=== PATIENT | male | born 1975 | race Hispanic/Latino ===

== ENCOUNTER 2018-01-26 05:39 | Emergency (ER) | payer SELFPAY ==
[~2018-01-26] VITALS: Ht 172.7 cm; Wt 93.0 kg
[2018-01-26] MEDS ORDERED: KETOROLAC TROMETHAMINE 30 MG/ML VIAL IV STA (05:52)
[2018-01-26] MEDS ORDERED: ONDANSETRON HCL INJ 2 MG/ML VIAL ONE (05:54)
[2018-01-26] MEDS ORDERED: KETOROLAC TROMETHAMINE 30 MG/ML VIAL ONE (05:54)
[2018-01-26] MEDS: ONDANSETRON HCL INJ 2 MG/ML VIAL IV STA (05:58)
[2018-01-26 06:08] LABS: BASOPHILS # (AUTO) 0.1 (0.0-0.1); BASOPHILS % 0.4 % (0.0-1.0); EOSINOPHILS # (AUTO) 0.2 (0.0-0.4); EOSINOPHILS % 1.4 % (0.0-6.0); HEMOGLOBIN 14.3 g/dL (14.0-18.0); LYMPHOCYTES # (AUTO) 7.1 (1.0-3.2); LYMPHOCYTES % 60.5 % (18.0-39.1); MEAN CORPUSCULAR HEMOGLOBIN 31.2 pg (28-32); MEAN CORPUSCULAR HGB CONC 34.9 g/dL (31-35); MEAN CORPUSCULAR VOLUME 89.3 fL (81-99); MONOCYTES # (AUTO) 0.8 (0.2-0.8); MONOCYTES % 6.9 % (4.4-11.3); NEUTROPHILS # (AUTO) 3.6 (2.1-6.9); NEUTROPHILS % 30.5 % (38.7-80.0); PLATELET COUNT 291 x10e3/uL (140-360); RED BLOOD COUNT 4.59 x10e6/uL (4.3-5.7); RED CELL DISTRIBUTION WIDTH 12.1 % (11.7-14.4)
[2018-01-26 06:26] LABS: CLARITY,URINE HAZY (CLEAR); COLOR,URINE YELLOW (YELLOW); LEUKOCYTE ESTERASE ,URINE TRACE (NEGATIVE); NITRITE,URINE NEGATIVE (NEGATIVE)
[2018-01-26 06:27] LABS: BACTERIA,URINE RARE /HPF; BILIRUBIN,URINE NEGATIVE (NEGATIVE); EPITHELIAL CELLS,URINE RARE /LPF; KETONES,URINE NEGATIVE (NEGATIVE); PROTEIN,URINE DIPSTICK NEGATIVE (NEGATIVE); RBC,URINE >50 /HPF (0-5); URINE UROBILINOGEN 0.2 mg/dL (0.2 - 1); WBC,URINE (MAN) 0-5 /HPF (0-5)
[2018-01-26 06:37] LABS: ALANINE AMINOTRANSFERASE 69 IU/L (0-55); ALBUMIN 4.3 g/dL (3.5-5.0); ALBUMIN/GLOBULIN RATIO 1.7 (0.8-2.0); ALKALINE PHOSPHATASE 91 IU/L (40-150); AMYLASE 50 U/L (25-125); ANION GAP 16.1 mmol/L (8-16); BLOOD UREA NITROGEN 8 mg/dL (7-26); BUN/CREATININE RATIO 10 (6-25); CALCIUM 9.1 mg/dL (8.4-10.2); CARBON DIOXIDE 20 mmol/L (22-29); CHLORIDE 108 mmol/L (98-107); CREATININE, SERUM 0.83 mg/dL (0.72-1.25); EST GLOMERULAR FILTRATION RATE > 60 ML/MIN (60-); GLUCOSE 119 mg/dL (74-118); LIPASE 51 U/L (8-78); POTASSIUM 3.1 mmol/L (3.5-5.1); SODIUM 141 mmol/L (136-145)
--- NOTE | 2018-01-26 06:52 | Diagnostic Imaging Report ---
EXAM: CT ABDOMEN/PELVIS WO DATE: 01/26/2018 5:52 AM INDICATION: ^right flank pain, rlq pain ^[id number] ^[id number] ^Y COMPARISON: None TECHNIQUE: The abdomen and pelvis were scanned using a multidetector helical scanner. Coronal and sagittal reformations were obtained. CT low dose techniques were utilized, as applicable. IV Contrast: 0 ml Isovue 300/370 FINDINGS: Lack of IV contrast decreases sensitivity in evaluating abdominal and pelvic organs. LOWER THORAX: No consolidations LIVER/BILIARY: Hepatic steatosis with pericholecystic sparing . GALLBLADDER: Unremarkable SPLEEN: Unremarkable PANCREAS: Unremarkable ADRENALS: No nodules KIDNEYS: Nonobstructing 9 mm left inferior renal calculus. No left hydronephrosis. No right renal calculi. 2 to 3 mm right proximal ureteral calculus without significant hydronephrosis. GI TRACT: No wall thickening or evidence of obstruction. Normal appendix. VESSELS: Unremarkable PERITONEUM/RETROPERITONEUM: No free air or fluid LYMPH NODES: No lymphadenopathy REPRODUCTIVE ORGANS/BLADDER: Unremarkable SOFT TISSUES: Tiny fat-containing umbilical hernia. BONES: No suspicious bone lesions. IMPRESSION: 1. 2 to 3 mm right proximal ureteral calculus without significant hydronephrosis. 2. Nonobstructing 9 mm left inferior renal calculus. No obstructive left uropathy. Signed by: Dr Keely Parker MD on 01/26/2018 6:48 AM
[2018-01-26 07:04] VITALS: BP 117/69
[2018-01-26 08:52] LABS: EOSINOPHILS % (MANUAL) 1 % (0-7); LYMPHOCYTES % (MANUAL) 60 % (19-48); MONOCYTES % (MANUAL) 11 % (3.4-9.0); NEUTROPHILS % (MANUAL) 28 % (40-74); PLATELET ESTIMATE ADEQUATE; PLATELET MORPHOLOGY COMMENT NORMAL; RBC MORPHOLOGY COMMENT NORMAL
== END 2018-01-26 07:21 | disposition home or self-care (01) ==
LOC: ER 05:39
DX: R10.31 Right lower quadrant pain (principal); R11.0 Nausea; N20.1 Calculus of ureter
CPT/HCPCS: 36415; 74176; 80053; 81001; 82150; 83690; 85025; 99284; J1885; J2405

== ENCOUNTER 2020-06-29 16:18 | Observation (INO) | payer BC, OTHER ==
[~2020-06-29] VITALS: Ht 172.7 cm; Wt 93.0 kg
[2020-06-29] MEDS ORDERED: KETOROLAC TROMETHAMINE 30 MG/ML VIAL IV STA (16:34)
[2020-06-29] MEDS ORDERED: ONDANSETRON HCL INJ 2MG/ML 2ML 2 MG/ML VIAL IV STA (16:34)
[2020-06-29 16:45] LABS: BASOPHILS % 0.3 % (0.0-1.0); EOSINOPHILS # (AUTO) 0.1 (0.0-0.4); HEMATOCRIT 40.9 % (38.2-49.6); HEMOGLOBIN 14.2 g/dL (14.0-18.0); LYMPHOCYTES # (AUTO) 2.5 (1.0-3.2); LYMPHOCYTES % 17.2 % (18.0-39.1); MEAN CORPUSCULAR HGB CONC 34.7 g/dL (31-35); MEAN CORPUSCULAR VOLUME 89.3 fL (81-99); MONOCYTES # (AUTO) 1.6 (0.2-0.8); MONOCYTES % 11.2 % (4.4-11.3); NEUTROPHILS # (AUTO) 10.2 (2.1-6.9); NEUTROPHILS % 69.8 % (38.7-80.0); PLATELET COUNT 287 x10e3/uL (140-360); RED BLOOD COUNT 4.58 x10e6/uL (4.3-5.7); RED CELL DISTRIBUTION WIDTH 12.3 % (11.7-14.4)
[2020-06-29 16:54] LABS: CLARITY,URINE SL CLOUDY (CLEAR); COLOR,URINE YELLOW (YELLOW); LEUKOCYTE ESTERASE ,URINE NEGATIVE (NEGATIVE); NITRITE,URINE NEGATIVE (NEGATIVE)
[2020-06-29 16:55] LABS: KETONES,URINE TRACE (NEGATIVE); PROTEIN,URINE DIPSTICK NEGATIVE (NEGATIVE); URINE UROBILINOGEN 0.2 mg/dL (0.2 - 1)
[2020-06-29 17:02] LABS: AMORPHOUS SEDIMENT,URINE MODERATE (FEW); BACTERIA,URINE FEW /HPF
[2020-06-29 17:07] LABS: ALBUMIN 4.4 g/dL (3.5-5.0); ALBUMIN/GLOBULIN RATIO 1.5 (0.8-2.0); ANION GAP 14.7 mmol/L (8-16); CALCIUM 8.6 mg/dL (8.4-10.2); CREATININE, SERUM 1.47 mg/dL (0.72-1.25); POTASSIUM 3.7 mmol/L (3.5-5.1)
[2020-06-29] MEDS ORDERED: GABAPENTIN300 MG PO (18:39)
[2020-06-29] MEDS ORDERED: CELECOXIB200 MG PO (18:39)
[2020-06-29] MEDS: SODIUM CHLORIDE 0.9% 1000ML 1,000 ML IV SCH (18:40)
[2020-06-29 18:46] LABS: CREATINE KINASE MB 1.1 ng/mL (0-5.0)
[2020-06-29 20:05] VITALS: BP 140/88
[2020-06-29 20:19] VITALS: BP 112/53
[2020-06-29] MEDS: MORPHINE SULFATE INJ 4 MG/ML INJ 1ML IV PRN ×2 (20:47→21:55)
[2020-06-29] MEDS: ONDANSETRON HCL INJ 2MG/ML 2ML 2 MG/ML VIAL IV PRN (20:48)
[2020-06-29 20:58] VITALS: BP 140/88
[2020-06-30] MEDS: ONDANSETRON HCL INJ 2MG/ML 2ML 2 MG/ML VIAL IV PRN ×3 (01:54→09:37)
[2020-06-30] MEDS: MORPHINE SULFATE INJ 4 MG/ML INJ 1ML IV PRN ×3 (01:54→09:37)
[2020-06-30 02:21] LABS: CREATINE KINASE 84 IU/L (30-200)
[2020-06-30] MEDS: SODIUM CHLORIDE 0.9% 1000ML 1,000 ML IV SCH ×2 (03:00→10:55)
[2020-06-30 05:26] VITALS: BP 110/66
[2020-06-30 06:10] LABS: BASOPHILS % 0.3 % (0.0-1.0); EOSINOPHILS # (AUTO) 0.4 (0.0-0.4); EOSINOPHILS % 3.1 % (0.0-6.0); HEMATOCRIT 36.1 % (38.2-49.6); HEMOGLOBIN 12.3 g/dL (14.0-18.0); LYMPHOCYTES % 33.2 % (18.0-39.1); MEAN CORPUSCULAR HEMOGLOBIN 30.5 pg (28-32); MEAN CORPUSCULAR HGB CONC 34.1 g/dL (31-35); MEAN CORPUSCULAR VOLUME 89.6 fL (81-99); MONOCYTES # (AUTO) 1.5 (0.2-0.8); MONOCYTES % 12.5 % (4.4-11.3); NEUTROPHILS # (AUTO) 6.1 (2.1-6.9); NEUTROPHILS % 50.6 % (38.7-80.0); PLATELET COUNT 254 x10e3/uL (140-360); RED BLOOD COUNT 4.03 x10e6/uL (4.3-5.7)
[2020-06-30] MEDS ORDERED: DOCUSATE SODIUM 100 MG CAP PO PRN (06:30)
[2020-06-30] MEDS ORDERED: ACETAMINOPHEN 325 MG TAB PO PRN (06:30)
[2020-06-30] MEDS ORDERED: ZOLPIDEM TARTRATE 5 MG TAB PO PRN (06:30)
[2020-06-30 06:34] LABS: ALANINE AMINOTRANSFERASE 23 IU/L (0-55); ALBUMIN 3.7 g/dL (3.5-5.0); ALBUMIN/GLOBULIN RATIO 1.5 (0.8-2.0); ALKALINE PHOSPHATASE 95 IU/L (40-150); ANION GAP 11.9 mmol/L (8-16); BLOOD UREA NITROGEN 15 mg/dL (7-26); BUN/CREATININE RATIO 13 (6-25); CARBON DIOXIDE 24 mmol/L (22-29); CHLORIDE 105 mmol/L (98-107); CREATININE, SERUM 1.18 mg/dL (0.72-1.25); EST GLOMERULAR FILTRATION RATE > 60 ML/MIN (60-); GLUCOSE 88 mg/dL (74-118); POTASSIUM 3.9 mmol/L (3.5-5.1); SODIUM 137 mmol/L (136-145)
[2020-06-30 07:23] LABS: CHOL/HDL RATIO 4.6 (3.9-4.7)
[2020-06-30] MEDS ORDERED: FAMOTIDINE 20 MG TAB PO SCH (07:30)
[2020-06-30 08:40] VITALS: BP 125/81
[2020-06-30 09:25] VITALS: BP 125/81
[2020-06-30] MEDS ORDERED: IOPAMIDOL 300MG/ML 50ML INFUS..BTL IV ONE (11:27)
[2020-06-30] MEDS ORDERED: BACTRIM DS TAB1 EACH PO (11:49)
[2020-06-30] MEDS ORDERED: ULTRAM 50MG50 MG PO (11:52)
[2020-06-30 13:10] VITALS: BP 128/70
[2020-06-30] MEDS ORDERED: PROPOFOL IV EMULSION 10 MG/ML 20 ML VIAL ONE (13:12)
[2020-06-30] MEDS ORDERED: ONDANSETRON HCL INJ 2MG/ML 2ML 2 MG/ML VIAL ONE (13:12)
[2020-06-30] MEDS ORDERED: DEXAMETHASONE SOD PHOS INJ 4 MG/ML VIAL ONE (13:12)
[2020-06-30] MEDS ORDERED: SEVOFLURANE INHAL SOLN 250 ML PEN BTL ONE (13:12)
[2020-06-30] MEDS ORDERED: LIDOCAINE HCL 2% LOCAL INJ 5 ML SDV VIAL INJ ONE (13:12)
[2020-06-30] MEDS ORDERED: FENTANYL CITRATE/PF 100MCG/2 ML INJ ONE (13:41)
[2020-06-30] MEDS ORDERED: MIDAZOLAM HCL 2 MG/2 ML VIAL ONE (13:41)
[2020-06-30 14:04] LABS: CREATINE KINASE MB 0.5 ng/mL (0-5.0)
[2020-06-30 16:48] VITALS: BP 128/74
[2020-06-30] MEDS ORDERED: GABAPENTIN 300 MG CAP PO SCH (21:00)
== END 2020-06-30 16:15 | disposition home or self-care (01) ==
LOC: ER 16:32 → INTOOBSV 17:58 → ERHOLD 17:58 → MED/SURG3 19:44
PROVIDERS: ADMIT Internal Medicine; ATTEND Internal Medicine
DX: N13.0 Hydronephrosis with ureteropelvic junction obstruction (principal); N20.1 Calculus of ureter; N17.9 Acute kidney failure, unspecified; E66.9 Obesity, unspecified; Z68.31 Body mass index [BMI] 31.0-31.9, adult; F17.210 Nicotine dependence, cigarettes, uncomplicated; Z20.822 Contact with and (suspected) exposure to COVID-19
CPT/HCPCS: 36415; 74176; 74420; 80053; 80061; 81001; 82550; 82553; 83036; 84484; 85025; 96361; 99284; C1758; C2625; G0378; J1100; J1885; J2001; J2250; J2270; J2405; J3010; J7030; U0002

== ENCOUNTER 2020-12-12 18:46 | Emergency (ER) | payer OTHER ==
[~2020-12-12] VITALS: Ht 172.7 cm; Wt 93.0 kg
[~2020-12-12 18:46] MED LIST: BACTRIM DS TAB1 EACH PO; CELECOXIB200 MG PO; GABAPENTIN300 MG PO; ULTRAM 50MG50 MG PO
[2020-12-12] MEDS ORDERED: ONDANSETRON HCL INJ 2MG/ML 2ML 2 MG/ML VIAL IV STA (19:58)
[2020-12-12] MEDS ORDERED: SODIUM CHLORIDE 0.9% 1000ML 1,000 ML IV STA (19:58)
[2020-12-12] MEDS ORDERED: MORPHINE SULFATE 5 MG/ML VIAL IV ONE (20:00)
[2020-12-12] MEDS ORDERED: MORPHINE SULFATE INJ 2 MG/ML SYR ONE (20:24)
[2020-12-12 20:29] LABS: BASOPHILS # (AUTO) 0.1 (0.0-0.1); BASOPHILS % 0.4 % (0.0-1.0); EOSINOPHILS # (AUTO) 0.3 (0.0-0.4); EOSINOPHILS % 2.1 % (0.0-6.0); HEMATOCRIT 43.6 % (38.2-49.6); HEMOGLOBIN 14.3 g/dL (14.0-18.0); LYMPHOCYTES % 29.2 % (18.0-39.1); MEAN CORPUSCULAR HGB CONC 32.8 g/dL (31-35); MEAN CORPUSCULAR VOLUME 94.4 fL (81-99); MONOCYTES # (AUTO) 1.6 (0.2-0.8); MONOCYTES % 11.6 % (4.4-11.3); NEUTROPHILS # (AUTO) 7.7 (2.1-6.9); NEUTROPHILS % 56.1 % (38.7-80.0); PLATELET COUNT 324 x10e3/uL (140-360); RED BLOOD COUNT 4.62 x10e6/uL (4.3-5.7); RED CELL DISTRIBUTION WIDTH 13.2 % (11.7-14.4)
[2020-12-12 20:37] LABS: CLARITY,URINE CLOUDY (CLEAR); COLOR,URINE BROWN (YELLOW)
[2020-12-12 20:38] LABS: KETONES,URINE NEGATIVE (NEGATIVE); LEUKOCYTE ESTERASE ,URINE SMALL (NEGATIVE); NITRITE,URINE NEGATIVE (NEGATIVE); PROTEIN,URINE DIPSTICK 2+ (NEGATIVE); URINE UROBILINOGEN 1 mg/dL (0.2 - 1)
[2020-12-12 20:43] LABS: ALANINE AMINOTRANSFERASE 33 IU/L (0-55); ALBUMIN 4.1 g/dL (3.5-5.0); ALBUMIN/GLOBULIN RATIO 1.1 (0.8-2.0); ALKALINE PHOSPHATASE 85 IU/L (40-150); ANION GAP 13.5 mmol/L (8-16); BACTERIA,URINE MODERATE /HPF; BLOOD UREA NITROGEN 21 mg/dL (7-26); BUN/CREATININE RATIO 27 (6-25); CALCIUM 9.7 mg/dL (8.4-10.2); CARBON DIOXIDE 26 mmol/L (22-29); CHLORIDE 106 mmol/L (98-107); CREATINE KINASE 34 IU/L (30-200); CREATININE, SERUM 0.78 mg/dL (0.72-1.25); EST GLOMERULAR FILTRATION RATE 108 ML/MIN (60-); GLUCOSE 89 mg/dL (74-118); POTASSIUM 4.5 mmol/L (3.5-5.1); RBC,URINE >50 /HPF (0-5); SODIUM 141 mmol/L (136-145)
[2020-12-12] MEDS ORDERED: CEFTRIAXONE 1 GM in SODIUM CHLORIDE 0.9% 50ML 50 ML IV ONE (21:00)
[2020-12-12] MEDS ORDERED: CEFUROXIME250 MG PO (23:19)
[2020-12-12] MEDS ORDERED: ULTRAM50 MG PO (23:19)
[2020-12-12 23:38] VITALS: BP 148/94
== END 2020-12-13 00:06 | disposition home or self-care (01) ==
LOC: ER 19:58
DX: R31.9 Hematuria, unspecified (principal); M54.5 Low back pain; N20.2 Calculus of kidney with calculus of ureter; R91.8 Other nonspecific abnormal finding of lung field; K76.0 Fatty (change of) liver, not elsewhere classified
CPT/HCPCS: 36415; 74176; 80053; 81001; 82550; 82553; 84484; 85025; 99284; J0696; J2270; J2405; J7030

== ENCOUNTER → 2021-01-20 | Day surgery (SDC) | payer OTHER ==
[2021-01-18 11:25] LABS: BASOPHILS # (AUTO) 0.1 (0.0-0.1); BASOPHILS % 0.6 % (0.0-1.0); EOSINOPHILS # (AUTO) 0.2 (0.0-0.4); EOSINOPHILS % 1.8 % (0.0-6.0); HEMATOCRIT 41.7 % (38.2-49.6); HEMOGLOBIN 13.8 g/dL (14.0-18.0); LYMPHOCYTES # (AUTO) 3.5 (1.0-3.2); LYMPHOCYTES % 40.4 % (18.0-39.1); MEAN CORPUSCULAR HEMOGLOBIN 30.3 pg (28-32); MEAN CORPUSCULAR HGB CONC 33.1 g/dL (31-35); MEAN CORPUSCULAR VOLUME 91.6 fL (81-99); MONOCYTES # (AUTO) 0.8 (0.2-0.8); MONOCYTES % 8.6 % (4.4-11.3); NEUTROPHILS # (AUTO) 4.2 (2.1-6.9); NEUTROPHILS % 48.3 % (38.7-80.0); PLATELET COUNT 281 x10e3/uL (140-360); RED BLOOD COUNT 4.55 x10e6/uL (4.3-5.7); RED CELL DISTRIBUTION WIDTH 12.4 % (11.7-14.4)
[2021-01-18 11:51] LABS: ANION GAP 13.1 mmol/L (8-16); CALCIUM 9.2 mg/dL (8.4-10.2); CREATININE, SERUM 0.71 mg/dL (0.72-1.25); POTASSIUM 4.1 mmol/L (3.5-5.1)
[~2021-01-20] MED LIST changes: +ACETAMINOPHEN-1 EAC3; +BELLADONNA/OPIUM 30 MG SUPP RC ONE; +CEFEPIME HCL 1 GM VIAL ONE; +CEFUROXIME250 MG PO; +DICLOFENAC POTA50 MG PO; +GENTAMICIN 80MG/NS 100 ML 200 ML IV ONE; +HYDROMORPHONE 1MG/1ML INJ ONE; +IOPAMIDOL 300MG/ML 50ML INFUS..BTL IV ONE; +TIZANIDINE HCL4 MG PO; +ULTRAM50 MG PO
[2021-01-20 13:05] VITALS: BP 167/109
== END | disposition home or self-care (01) ==
LOC: OR 09:07
PROVIDERS: ATTEND Urology
DX: N20.0 Calculus of kidney (principal); N21.0 Calculus in bladder; N13.30 Unspecified hydronephrosis; N39.0 Urinary tract infection, site not specified; Z46.6 Encounter for fitting and adjustment of urinary device; N40.0 Benign prostatic hyperplasia without lower urinary tract symptoms; R80.9 Proteinuria, unspecified; M54.50 Low back pain, unspecified; R00.1 Bradycardia, unspecified; Z72.0 Tobacco use; Z01.810 Encounter for preprocedural cardiovascular examination; Z01.812 Encounter for preprocedural laboratory examination; Z01.818 Encounter for other preprocedural examination; Z20.822 Contact with and (suspected) exposure to COVID-19; Z68.30 Body mass index [BMI] 30.0-30.9, adult
CPT/HCPCS: 36415; 74018; 80048; 83970; 84550; 85025; 88300; 93005; C1758; C2617; J0692; J1170; J1580; U0002

== ENCOUNTER → 2021-02-07 | Outpatient (CLI) | payer OTHER ==
[~2021-02-07] MED LIST changes: -BELLADONNA/OPIUM 30 MG SUPP RC ONE; -CEFEPIME HCL 1 GM VIAL ONE; -GENTAMICIN 80MG/NS 100 ML 200 ML IV ONE; -HYDROMORPHONE 1MG/1ML INJ ONE; -IOPAMIDOL 300MG/ML 50ML INFUS..BTL IV ONE
== END ==
LOC: CT 15:37
PROVIDERS: ATTEND Urology
DX: N20.0 Calculus of kidney (principal)
CPT/HCPCS: 74176

== ENCOUNTER 2022-03-08 11:26 | Observation (INO) | payer OTHER ==
[~2022-03-08] VITALS: Ht 172.7 cm; Wt 93.0 kg
[2022-03-08] MEDS ORDERED: SODIUM CHLORIDE 0.9% 1000ML 1,000 ML IV STA (11:48)
[2022-03-08] MEDS ORDERED: KETOROLAC TROMETHAMINE 30 MG/ML VIAL IV STA (11:48)
[2022-03-08 12:02] LABS: BASOPHILS # (AUTO) 0.2 (0.0-0.1); BASOPHILS % 1.2 % (0.0-1.0); EOSINOPHILS % 0.2 % (0.0-6.0); HEMATOCRIT 45.2 % (38.2-49.6); HEMOGLOBIN 15.4 g/dL (14.0-18.0); LYMPHOCYTES # (AUTO) 2.7 (1.0-3.2); LYMPHOCYTES % 18.8 % (18.0-39.1); MEAN CORPUSCULAR HEMOGLOBIN 30.9 pg (28-32); MEAN CORPUSCULAR HGB CONC 34.1 g/dL (31-35); MEAN CORPUSCULAR VOLUME 90.6 fL (81-99); MONOCYTES # (AUTO) 0.9 (0.2-0.8); MONOCYTES % 6.1 % (4.4-11.3); NEUTROPHILS # (AUTO) 10.3 (2.1-6.9); NEUTROPHILS % 73.2 % (38.7-80.0); PLATELET COUNT 335 x10e3/uL (140-360); RED BLOOD COUNT 4.99 x10e6/uL (4.3-5.7); RED CELL DISTRIBUTION WIDTH 12.2 % (11.7-14.4)
[2022-03-08 12:23] LABS: ALBUMIN 4.5 g/dL (3.5-5.0); ALBUMIN/GLOBULIN RATIO 1.6 (0.8-2.0); ANION GAP 13.7 mmol/L (8-16); CALCIUM 9.1 mg/dL (8.4-10.2); CREATININE, SERUM 0.8 mg/dL (0.72-1.25); POTASSIUM 3.7 mmol/L (3.5-5.1)
[2022-03-08] MEDS ORDERED: CEFTRIAXONE 1 GM VIAL IM ONE (13:30)
[2022-03-08] MEDS ORDERED: ONDANSETRON HCL INJ 2MG/ML 2ML 2 MG/ML VIAL IV PRN (13:30)
[2022-03-08 14:27] LABS: CLARITY,URINE SL CLOUDY (CLEAR); COLOR,URINE YELLOW (YELLOW); KETONES,URINE NEGATIVE (NEGATIVE); LEUKOCYTE ESTERASE ,URINE NEGATIVE (NEGATIVE); NITRITE,URINE NEGATIVE (NEGATIVE); PROTEIN,URINE DIPSTICK NEGATIVE (NEGATIVE); URINE UROBILINOGEN 0.2 mg/dL (0.2 - 1)
[2022-03-08 14:39] LABS: WBC,URINE (MAN) 0-5 /HPF (0-5)
[2022-03-08 14:40] LABS: AMORPHOUS SEDIMENT,URINE MODERATE (FEW); BACTERIA,URINE MODERATE /HPF; MUCUS,URINE FEW (RARE)
[2022-03-08] MEDS: SODIUM CHLORIDE 0.9% 1000ML 1,000 ML IV SCH (16:20)
[2022-03-08] MEDS: Morphine 4mg INJECTION 4 MG/ML INJ IV PRN ×2 (16:20→20:56)
[2022-03-08 17:05] VITALS: BP 137/74
[2022-03-08 17:36] VITALS: BP 137/74
[2022-03-08 18:09] VITALS: BP 137/74
[2022-03-08 20:00] VITALS: BP 126/73
[2022-03-08 20:48] VITALS: BP 137/74
[2022-03-08] MEDS ORDERED: MELATONIN 5 MG TABLET PO PRN (21:30)
[2022-03-09] VITALS: BP 108/67
[2022-03-09] MEDS: SODIUM CHLORIDE 0.9% 1000ML 1,000 ML IV SCH ×3 (05:30→16:09)
[2022-03-09 06:14] LABS: BASOPHILS # (AUTO) 0.2 (0.0-0.1); BASOPHILS % 1.4 % (0.0-1.0); EOSINOPHILS # (AUTO) 0.2 (0.0-0.4); EOSINOPHILS % 1.6 % (0.0-6.0); HEMATOCRIT 37.9 % (38.2-49.6); HEMOGLOBIN 13.1 g/dL (14.0-18.0); MEAN CORPUSCULAR HEMOGLOBIN 31.6 pg (28-32); MEAN CORPUSCULAR HGB CONC 34.6 g/dL (31-35); MEAN CORPUSCULAR VOLUME 91.3 fL (81-99); MONOCYTES % 8.5 % (4.4-11.3); NEUTROPHILS % 44.1 % (38.7-80.0); PLATELET COUNT 300 x10e3/uL (140-360); RED BLOOD COUNT 4.15 x10e6/uL (4.3-5.7); RED CELL DISTRIBUTION WIDTH 12.4 % (11.7-14.4)
[2022-03-09 06:42] LABS: ANION GAP 10.8 mmol/L (8-16); CALCIUM 8.6 mg/dL (8.4-10.2); CREATININE, SERUM 0.74 mg/dL (0.72-1.25); POTASSIUM 3.8 mmol/L (3.5-5.1)
[2022-03-09 06:44] VITALS: BP 109/70
[2022-03-09] MEDS: Morphine 4mg INJECTION 4 MG/ML INJ IV PRN ×3 (07:17→16:07)
[2022-03-09 09:14] VITALS: BP 127/82
[2022-03-09 09:46] VITALS: BP 127/82
[2022-03-09] MEDS: DOCUSATE SODIUM 100 MG CAP PO SCH ×2 (10:00→16:07)
[2022-03-09] MEDS ORDERED: ONDANSETRON HCL 4 MG ORAL DISINTEGRATING TAB PO PRN (12:00)
[2022-03-09] MEDS ORDERED: FENTANYL CITRATE/PF 100MCG/2 ML INJ ONE (13:11)
[2022-03-09] MEDS ORDERED: MIDAZOLAM HCL 2 MG/2 ML VIAL ONE (13:11)
[2022-03-09] MEDS ORDERED: ONDANSETRON HCL INJ 2MG/ML 2ML 2 MG/ML VIAL ONE (13:34)
[2022-03-09] MEDS ORDERED: LIDOCAINE HCL 2% LOCAL INJ 5 ML SDV VIAL INJ ONE (13:34)
[2022-03-09] MEDS ORDERED: POVIDONE IODINE 0.05% 0.05 % ML PO ONE (13:34)
[2022-03-09] MEDS ORDERED: PROPOFOL IV EMULSION 10 MG/ML 20 ML VIAL ONE (13:34)
[2022-03-09] MEDS ORDERED: SEVOFLURANE INHAL SOLN 250 ML PEN BTL ONE (13:34)
[2022-03-09] MEDS ORDERED: PHENAZOPYRIDINE HCL 100 MG TAB PO PRN (13:45)
[2022-03-09] MEDS ORDERED: ACETAMINOPHEN/CODEINE 300MG - 30MG TAB PO PRN (13:45)
[2022-03-09 13:50] VITALS: BP 145/94
[2022-03-09 16:40] VITALS: BP 144/87
[2022-03-09] MEDS ORDERED: VESICARE5 MG PO (18:01)
[2022-03-09] MEDS ORDERED: ceftin PO (18:02)
[2022-03-09] MEDS ORDERED: tylenol #3 PO (18:02)
[2022-03-10] MEDS ORDERED: SOLIFENACIN SUCCINATE 5 MG TAB PO SCH (09:00)
== END 2022-03-09 18:13 | disposition home or self-care (01) ==
LOC: ER 11:35 → ERHOLD 13:27 → MED/SURG3 16:53
PROVIDERS: ADMIT Internal Medicine; ATTEND Internal Medicine
DX: N13.2 Hydronephrosis with renal and ureteral calculous obstruction (principal); R31.29 Other microscopic hematuria; Z20.822 Contact with and (suspected) exposure to COVID-19
CPT/HCPCS: 36415; 74176; 80048; 80053; 81001; 83690; 85025; 87086; 88300; 94799; 99284; C1758; C1769; C2617; G0378; J0696; J1885; J2001; J2250; J2270; J2405; J3010; J7030; Q0162

== ENCOUNTER → 2024-02-19 | Outpatient (REF) | payer OTHER ==
[~2024-02-19] MED LIST changes: +VESICARE5 MG PO; +ceftin PO; +tylenol #3 PO
== END ==
LOC: NM 09:46
PROVIDERS: ATTEND Physician Assistant
DX: M54.50 Low back pain, unspecified (principal); M43.26 Fusion of spine, lumbar region
CPT/HCPCS: 78306; A9503

== ENCOUNTER 2024-07-07 12:45 | Emergency (ER) | payer OTHER ==
[~2024-07-07] VITALS: Ht 172.7 cm; Wt 89.8 kg
[2024-07-07] MEDS ORDERED: ASPIRIN 81 MG CHEW TAB ONE (12:50)
[2024-07-07] MEDS: ASPIRIN 81 MG CHEW TAB PO ONE (12:50)
[2024-07-07 12:53] VITALS: TEMP 98.3
[2024-07-07 12:59] LABS: BASOPHILS # (AUTO) 0.1 (0.0-0.1); BASOPHILS % 0.7 % (0.0-1.0); EOSINOPHILS # (AUTO) 0.2 (0.0-0.4); EOSINOPHILS % 2.6 % (0.0-6.0); HEMATOCRIT 41.1 % (38.2-49.6); HEMOGLOBIN 14.6 g/dL (14.0-18.0); LYMPHOCYTES # (AUTO) 3.6 (1.0-3.2); LYMPHOCYTES % 41.3 % (18.0-39.1); MEAN CORPUSCULAR HEMOGLOBIN 31.4 pg (28-32); MEAN CORPUSCULAR HGB CONC 35.5 g/dL (31-35); MEAN CORPUSCULAR VOLUME 88.4 fL (81-99); MONOCYTES # (AUTO) 0.8 (0.2-0.8); MONOCYTES % 9.2 % (4.4-11.3); NEUTROPHILS % 45.9 % (38.7-80.0); PLATELET COUNT 307 x10e3/uL (140-360); RED BLOOD COUNT 4.65 x10e6/uL (4.3-5.7); RED CELL DISTRIBUTION WIDTH 12.1 % (11.7-14.4)
[2024-07-07 13:29] LABS: ALBUMIN 4.5 g/dL (3.5-5.0); ALBUMIN/GLOBULIN RATIO 1.6 (0.8-2.0); ANION GAP 13.7 mmol/L (8-16); BILIRUBIN,TOTAL 0.6 mg/dL (0.2-1.2); CREATININE, SERUM 0.8 mg/dL (0.72-1.25); POTASSIUM 3.7 mmol/L (3.5-5.1); TOTAL PROTEIN 7.4 g/dL (6.5-8.1)
[2024-07-07 13:35] LABS: TROPONIN I 0.008 ng/mL (0-0.300)
[2024-07-07] MEDS: MAGNESIUM/ALUMINUM/SIMETHICONE 30 ML UDC PO ONE (13:43)
[2024-07-07] MEDS: LIDOCAINE VISC 2% SOLN 15 ML UDC PO ONE (13:43)
[2024-07-07] MEDS: BELLADONNA ALK/PHENOBARBITAL 5 ML UDC PO STA (13:43)
[2024-07-07 15:32] VITALS: PULSE 82; RESP 16; O2SAT 100
== END 2024-07-07 15:38 | disposition home or self-care (01) ==
LOC: ER 12:47
DX: R07.89 Other chest pain (principal); E78.5 Hyperlipidemia, unspecified; Z87.442 Personal history of urinary calculi; F17.210 Nicotine dependence, cigarettes, uncomplicated
CPT/HCPCS: 36415; 71045; 80053; 83690; 84484; 85025; 93005; 99284